=== PATIENT | male | born 1940 | race Caucasian/White ===

== ENCOUNTER 2016-08-08 14:28 | Outpatient (RCR) | payer MEDICARE, OTHER ==
[~2016-08-08 14:28] MED LIST: CARV12.5 PO; FRSM40T PO; LEVO500S PO; LEVO750T39 PO; LSNP10T PO; MINO5POW PO; NF-MINO10T PO; SMV10T PO; SPRN25T PO; WARF4TAB3 PO
[2016-08-08 16:14] LABS: ALBUMIN 4.6 g/dL (3.4-5.0); ANION GAP 13.7 MEQ/L (3-15); CALCULATED IONIZED CALCIUM 4.1 mg/dL (3.8-4.6)
[2016-08-08 19:46] LABS: IRON 79 ug/dL (65-175); UNBOUND IRON CONTENT 207 ug/dl (126-382)
[2016-08-08 20:14] LABS: HEPATITIS A ANTIBODY IGM Negative; HEPATITIS B CORE ABY IGM Negative; HEPATITIS B SURFACE ANTIGEN C Negative; VITAMIN B 12 329 pg/mL (213-816)
[2016-08-19 10:39] LABS: BASOPHILS % (AUTO) 1 % (0-2); EOSINOPHILS # (AUTO) 0.4 10^3uL; EOSINOPHILS % (AUTO) 7 % (0-4); LYMPHOCYTES # (AUTO) 1.6 X10^3; MEAN CORPUSCULAR HEMOGLOBIN 31.1 PG (26.0-34.0); MEAN CORPUSCULAR HGB CONC 33.4 g/dL (31.0-37.0); MEAN CORPUSCULAR VOLUME 93 FL (80-100); MEAN PLATELET VOLUME 10.6 FL (6.0-9.5); MONOCYTES # (AUTO) 0.5 X10^3; MONOCYTES % (AUTO) 10 % (3-11); NEUTROPHILS # (AUTO) 2.4 X10^3; NEUTROPHILS % (AUTO) 49 % (51-67); PLATELET COUNT 128 10^3uL (150-450); WHITE BLOOD COUNT 4.91 10^3uL (4.0-11.0)
[2016-08-19 11:00] LABS: ALBUMIN 4.8 g/dL (3.4-5.0); ANION GAP 18.3 MEQ/L (3-15); CALCULATED IONIZED CALCIUM 3.9 mg/dL (3.8-4.6); TOTAL PROTEIN 8.5 g/dL (6.4-8.5)
[2016-10-13 14:26] LABS: BASOPHILS % (AUTO) 1 % (0-2); EOSINOPHILS # (AUTO) 0.4 10^3uL; EOSINOPHILS % (AUTO) 7 % (0-4); LYMPHOCYTES # (AUTO) 2.1 X10^3; MEAN CORPUSCULAR HEMOGLOBIN 31.3 PG (26.0-34.0); MEAN CORPUSCULAR HGB CONC 33.6 g/dL (31.0-37.0); MEAN CORPUSCULAR VOLUME 93 FL (80-100); MEAN PLATELET VOLUME 10.4 FL (6.0-9.5); MONOCYTES # (AUTO) 0.5 X10^3; MONOCYTES % (AUTO) 10 % (3-11); NEUTROPHILS # (AUTO) 2.6 X10^3; NEUTROPHILS % (AUTO) 46 % (51-67); PLATELET COUNT 116 10^3uL (150-450); WHITE BLOOD COUNT 5.69 10^3uL (4.0-11.0)
[2016-10-13 14:27] LABS: ABSOLUTE RETIC # 23 10^3uL (22-82)
[2016-10-13 14:40] LABS: ALBUMIN 4.7 g/dL (3.4-5.0); ANION GAP 16.8 MEQ/L (3-15); TOTAL PROTEIN 7.6 g/dL (6.4-8.5)
[2016-10-13 16:33] LABS: IRON 73 ug/dL (65-175); UNBOUND IRON CONTENT 221 ug/dl (126-382)
== END 2016-11-06 | disposition home or self-care (01) ==
LOC: LAB 14:28
PROVIDERS: ATTEND Internal Medicine Hematology & Oncology
DX: D61.818 Other pancytopenia (principal); Z79.899 Other long term (current) drug therapy; D59.0 Drug-induced autoimmune hemolytic anemia; D64.9 Anemia, unspecified; R53.83 Other fatigue; T50.905D Adverse effect of unspecified drugs, medicaments and biological substances, subsequent encounter
CPT/HCPCS: 36415; 80053; 80074; 81270; 81403; 82607; 82668; 82728; 82746; 82784; 83010; 83540; 83550; 83615; 84155; 85025; 85045; 86157; 86334; 86880; 88184

== ENCOUNTER 2017-01-12 13:55 | Outpatient (RCR) | payer MEDICARE, OTHER ==
[2017-01-12 14:15] LABS: BASOPHILS % (AUTO) 0 % (0-2); EOSINOPHILS # (AUTO) 0.4 10^3uL; EOSINOPHILS % (AUTO) 7 % (0-4); LYMPHOCYTES # (AUTO) 1.9 X10^3; MEAN CORPUSCULAR HGB CONC 32.7 g/dL (31.0-37.0); MEAN CORPUSCULAR VOLUME 95 FL (80-100); MEAN PLATELET VOLUME 10.5 FL (6.0-9.5); MONOCYTES # (AUTO) 0.5 X10^3; MONOCYTES % (AUTO) 10 % (3-11); NEUTROPHILS # (AUTO) 2.2 X10^3; NEUTROPHILS % (AUTO) 44 % (51-67); PLATELET COUNT 127 10^3uL (150-450); WHITE BLOOD COUNT 4.91 10^3uL (4.0-11.0)
== END 2017-02-18 19:20 | disposition home or self-care (01) ==
LOC: LAB 13:55
PROVIDERS: ATTEND Internal Medicine Hematology & Oncology
DX: D61.818 Other pancytopenia (principal)
CPT/HCPCS: 36415; 85025